=== PATIENT | female | born 1970 | race Caucasian/White ===

== ENCOUNTER 2021-04-28 19:45 | Inpatient (IN) | payer MEDICARE, OTHER ==
[~2021-04-28] VITALS: Ht 170.2 cm; Wt 98.2 kg
[~2021-04-28 19:45] MED LIST: NORCO 5-325 TA1 EACH PO; PERCOCET 5-3251 EACH PO
[2021-04-28 21:51] LABS: BASOPHIL 0.7 % (0-2); EOSINOPHIL 0.2 % (0-5); HCT 46.1 % (37.0-47.0); HGB 14.8 g/dl (12.5-16.0); LYMPHOCYTE 29.4 % (15-48); MCH 28.1 pg (25.0-31.0); MCHC 32.1 g/dL (32.0-36.0); MCV 87.6 fL (78.0-100.0); MONOCYTE 8.8 % (0-12); MPV 10.4 fL (6.0-9.5); NEUTROPHIL 60.2 % (41-80); NRBC 0; PLT 153 K/uL (150-400); RBC 5.26 M/uL (4.20-5.40); RDW 13.7 % (11.5-14.0)
[2021-04-28 22:16] LABS: PRO-BNP 12 pg/mL (<125)
[2021-04-28 22:23] LABS: ALBUMIN 3.1 g/dL (3.4-5.0); BILIRUBIN - TOTAL 0.2 mg/dL (0.2-1.0); BUN/CREAT RATIO (CALC) 16.1 RATIO; C-REACTIVE PROTEIN 4.6 mg/dL (<=0.90); CREATININE 0.56 mg/dL (0.51-0.95); GLOBULIN (CALCULATION) 3.7 g/dL; TOTAL PROTEIN 6.8 g/dL (6.4-8.2)
[2021-04-29 05:24] LABS: BASOPHIL 0.2 % (0-2); EOSINOPHIL 0 % (0-5); HCT 43.8 % (37.0-47.0); HGB 14.1 g/dl (12.5-16.0); LYMPHOCYTE 21.2 % (15-48); MCH 28.4 pg (25.0-31.0); MCHC 32.2 g/dL (32.0-36.0); MCV 88.1 fL (78.0-100.0); MONOCYTE 2.5 % (0-12); NEUTROPHIL 75.6 % (41-80); NRBC 0; PLT 148 K/uL (150-400); RBC 4.97 M/uL (4.20-5.40); RDW 13.8 % (11.5-14.0); WBC 4.3 K/uL (4.0-10.5)
[2021-04-29 05:57] LABS: ALBUMIN 2.9 g/dL (3.4-5.0); BILIRUBIN - TOTAL 0.2 mg/dL (0.2-1.0); C-REACTIVE PROTEIN 5.2 mg/dL (<=0.90); CREATININE 0.55 mg/dL (0.51-0.95); GLOBULIN (CALCULATION) 3.9 g/dL; MAGNESIUM 1.7 mg/dL (1.8-2.4); PHOSPHORUS 4.2 mg/dL (2.6-4.7); POTASSIUM 4.6 mmol/L (3.5-5.1); TOTAL PROTEIN 6.8 g/dL (6.4-8.2)
--- NOTE | 2021-04-29 11:00 | NUR ---
PT GLUCOSE 480, MD NOTIFIED. ORDERS TO FOLLOW INSULIN SCALE AND GIVE 18 UNITS AND PENDING LANTUS ORDER.
--- NOTE | 2021-04-29 14:38 | NUR ---
NOTIFIED ABOUT PT GLUCOSE 480 AT NOON. NO NEW ORDERS AT THIS TIME.
[2021-05-01 05:48] LABS: BASOPHIL 0.2 % (0-2); EOSINOPHIL 0 % (0-5); HCT 39.5 % (37.0-47.0); HGB 12.7 g/dl (12.5-16.0); LYMPHOCYTE 36.2 % (15-48); MCH 28.2 pg (25.0-31.0); MCHC 32.2 g/dL (32.0-36.0); MCV 87.8 fL (78.0-100.0); MONOCYTE 10.5 % (0-12); MPV 10.3 fL (6.0-9.5); NEUTROPHIL 51.8 % (41-80); NRBC 0; PLT 183 K/uL (150-400); RDW 13.4 % (11.5-14.0); WBC 6.3 K/uL (4.0-10.5)
[2021-05-01 06:21] LABS: ALBUMIN 2.5 g/dL (3.4-5.0); BILIRUBIN - TOTAL 0.2 mg/dL (0.2-1.0); C-REACTIVE PROTEIN 1.2 mg/dL (<=0.90); CREATININE 0.4 mg/dL (0.51-0.95); GLOBULIN (CALCULATION) 3.8 g/dL; POTASSIUM 3.9 mmol/L (3.5-5.1); TOTAL PROTEIN 6.3 g/dL (6.4-8.2)
--- NOTE | 2021-05-01 10:54 | NUR ---
05/01 A referral was made to [facility] for home 02 per patient choice.
[2021-05-02 06:04] LABS: BASOPHIL 0.3 % (0-2); EOSINOPHIL 0 % (0-5); HCT 41.8 % (37.0-47.0); HGB 13.5 g/dl (12.5-16.0); LYMPHOCYTE 39.7 % (15-48); MCH 28.1 pg (25.0-31.0); MCHC 32.3 g/dL (32.0-36.0); MCV 87.1 fL (78.0-100.0); MONOCYTE 12.6 % (0-12); MPV 10.1 fL (6.0-9.5); NEUTROPHIL 46.1 % (41-80); NRBC 0; PLT 232 K/uL (150-400); RDW 13.5 % (11.5-14.0); WBC 6.9 K/uL (4.0-10.5)
[2021-05-02 06:46] LABS: ALBUMIN 2.8 g/dL (3.4-5.0); BILIRUBIN - TOTAL 0.2 mg/dL (0.2-1.0); CREATININE 0.4 mg/dL (0.51-0.95); GLOBULIN (CALCULATION) 3.8 g/dL; POTASSIUM 3.8 mmol/L (3.5-5.1); TOTAL PROTEIN 6.6 g/dL (6.4-8.2)
[2021-05-03] MEDS ORDERED: GLUCOTROL XL5 MG PO (09:35)
[2021-05-03] MEDS ORDERED: METFORMIN HCL500 MG PO (09:35)
== END 2021-05-03 10:30 | disposition home or self-care (01) | DRG 177 ==
LOC: FER 19:45 → FTCU 04-29 00:32
PROVIDERS: Emergency Medicine Emergency Medical Services; Internal Medicine; Nurse Practitioner; ADMIT Allergy & Immunology Allergy
PROC: 8E0ZXY6 Isolation (ICD-10-PCS; principal; 2021-04-29)
PROC: XW033E5 Introduction of Remdesivir Anti-infective into Peripheral Vein, Percutaneous Approach, New Technology Group 5 (ICD-10-PCS; 2021-04-29)
PROC: XW0DXM6 Introduction of Baricitinib into Mouth and Pharynx, External Approach, New Technology Group 6 (ICD-10-PCS; 2021-04-29)
DX: U07.1 COVID-19 (principal); J12.82 Pneumonia due to coronavirus disease 2019; J96.01 Acute respiratory failure with hypoxia; F17.210 Nicotine dependence, cigarettes, uncomplicated; E11.65 Type 2 diabetes mellitus with hyperglycemia; Z90.49 Acquired absence of other specified parts of digestive tract; Z98.51 Tubal ligation status; Z98.890 Other specified postprocedural states; Z87.442 Personal history of urinary calculi; Z88.8 Allergy status to other drugs, medicaments and biological substances; Z88.6 Allergy status to analgesic agent; Z88.5 Allergy status to narcotic agent; Z79.899 Other long term (current) drug therapy
CPT/HCPCS: 36415; 36600; 71045; 71275; 80053; 82728; 82803; 82962; 83036; 83605; 83615; 83735; 83880; 84100; 84145; 84484; 85025; 85379; 86140; 87040; 93005; 94010; 94640; 94664; 94760; C9399; J0696; J1100; J1650; J7030; J7050; Q9967; U0002

== ENCOUNTER 2021-05-23 17:48 | Emergency (ER) | payer MEDICARE, OTHER ==
[~2021-05-23 17:48] MED LIST changes: +GLUCOTROL XL5 MG PO; +METFORMIN HCL500 MG PO
[2021-05-23 18:15] LABS: BASOPHIL 0.7 % (0-2); EOSINOPHIL 1.9 % (0-5); LYMPHOCYTE 36.3 % (15-48); MCH 28.8 pg (25.0-31.0); MCHC 31.6 g/dL (32.0-36.0); MCV 91.1 fL (78.0-100.0); MONOCYTE 8.5 % (0-12); MPV 9.2 fL (6.0-9.5); NRBC 0; PLT 282 K/uL (150-400); RBC 4.17 M/uL (4.20-5.40); RDW 14.6 % (11.5-14.0)
[2021-05-23 18:26] LABS: INR 0.95 (0.9-1.2); PROTHROMBIN TIME 12.1 SECONDS (11.8-13.4); PTT 28.3 SECONDS (24.4-34.7)
[2021-05-23 20:36] LABS: ALBUMIN 3.1 g/dL (3.4-5.0); BILIRUBIN - TOTAL 0.2 mg/dL (0.2-1.0); BUN/CREAT RATIO (CALC) 28.6 RATIO; CREATININE 0.56 mg/dL (0.51-0.95); GLOBULIN (CALCULATION) 3.8 g/dL; POTASSIUM 3.7 mmol/L (3.5-5.1); TOTAL PROTEIN 6.9 g/dL (6.4-8.2)
[2021-05-23] MEDS ORDERED: MOBIC7.5 MG PO (22:31)
[2021-05-23] MEDS ORDERED: TESSALON PERLE100 MG PO (22:31)
[2021-05-23] MEDS ORDERED: NORCO 5-325 TA1 EACH PO (22:31)
[2021-05-23] MEDS ORDERED: DUONEB 2.5-0.5M1 AMP INH (22:35)
== END 2021-05-23 22:45 | disposition home or self-care (01) ==
LOC: FER 17:48
PROVIDERS: Emergency Medicine; Emergency Medicine Emergency Medical Services
DX: U07.1 COVID-19 (principal); J96.01 Acute respiratory failure with hypoxia; E11.9 Type 2 diabetes mellitus without complications; F17.210 Nicotine dependence, cigarettes, uncomplicated; Z88.5 Allergy status to narcotic agent; Z88.6 Allergy status to analgesic agent; Z79.84 Long term (current) use of oral hypoglycemic drugs
CPT/HCPCS: 36415; 36600; 71045; 71275; 80053; 82803; 83880; 84484; 85025; 85379; 85610; 85730; 93005; 94640; 94664; J0696; J1170; J1885; J2405; J2930; J7030; Q9967; U0002